=== PATIENT | female | born 1975 | race Two or more races ===

== ENCOUNTER 2024-05-27 12:58 | Emergency (ER) | payer OTHER ==
[2024-05-27 13:13] VITALS: BP 117/77; PULSE 71; RESP 16; BMI 47.2
[2024-05-27 13:46] VITALS: TEMP 98
[2024-05-27] MEDS ORDERED: DIPHTH,PERTUSS(ACELL),TET 0.5 ML DISP.SYRIN IM ONE (14:23)
[2024-05-27] MEDS: DIPHTH,PERTUSS(ACELL),TET 0.5 ML DISP.SYRIN IM ONE (14:27)
[2024-05-27] MEDS ORDERED: LIDOCAINE HCL 2% (20ML MULTI-DOSE VIAL) ONE (14:32)
[2024-05-27] MEDS: LIDOCAINE HCL 2% (50ML VIAL) SQ ONE (14:49)
== END 2024-05-27 15:29 | disposition home or self-care (01) ==
LOC: JERFT 12:58
PROC: 0XQKXZZ Repair Left Hand, External Approach (ICD-10-PCS; principal; 2024-05-27)
PROC: 3E0234Z Introduction of Serum, Toxoid and Vaccine into Muscle, Percutaneous Approach (ICD-10-PCS; 2024-05-27)
DX: S61.412A Laceration without foreign body of left hand, initial encounter (principal); Z23 Encounter for immunization; W26.0XXA Contact with knife, initial encounter
CPT/HCPCS: 90715; 99284-25